=== PATIENT | male | born 1950 | race American Indian/Alaskan Native ===

== ENCOUNTER 2022-04-22 21:47 | Emergency (ER) | payer MEDICARE, OTHER ==
[2022-04-22] MEDS ORDERED: MIDAZOLAM 2 MG/2 ML INJ IV ONE (21:53)
--- NOTE | 2022-04-22 21:54 | Emergency Department Report ---
ED General Adult HPI - General Chief complaint: Neuro Symptoms/Deficit Stated complaint: CODE STROKE Time Seen by Provider: 04/22/22 21:51 Source: patient, EMS (Verbal report received from emergency medical services. EMS documentation not available at time of chart dictation ), RN notes reviewed Mode of arrival: Stretcher Limitations: Physical Limitation - History of Present Illness Initial comments: The patient was evaluated in the emergency department for symptoms described in the history of present illness. He/she was evaluated in the context of the global COVID-19 pandemic, which necessitated consideration that the patient might be at risk for infection with the virus that causes COVID-19. Institutional protocols and algorithms that pertain to the evaluation of patients at risk for COVID-19 are in a state of rapid change based on inform ation released by regulatory bodies including the CDC and federal and state organizations. These policies and algorithms were followed during the patient's care in the emergency department. Please note that these policies, procedures and recommendations changed on a rapid basis. The patient is a 71-year-old gentleman who is COVID-19 vaccinated, who presents to the department today with EMS with an EMS articulated complaint of possible code stroke. EMS reports last known well time is 12:00 PM this afternoon. As per EMS, stroke symptoms include difficulty speaking, and right-sided weakness and numbness. EMS also reports the patient has been stumbling and walking unsteadily today. There is no trauma. The patient denies physical pain. The patient states he does not take blood thinning medications. Symptoms are constant, painless, do not radiate anywhere, do not have exacerbating or relieving factors -: hour(s) Location: right, upper extremity, lower extremity Consistency: constant Improves with: none Worsens with: none - Related Data Previous Rx's Medication Instructions Recorded Last Taken Type Ibuprofen [Motrin] 600 mg PO Q8H PRN #30 tablet 03/01/16 Unknown Rx Allergies Allergy/AdvReac Type Severity Reaction Status Date / Time No Known Allergies Allergy Verified 04/22/22 23:09 ED Review of Systems ROS: Stated complaint: CODE STROKE Other details as noted in HPI Constitutional: denies: fever Eyes: denies: eye discharge ENT: denies: epistaxis Respiratory: denies: cough Cardiovascular: denies: chest pain Gastrointestinal: denies: abdominal pain Neurological: weakness, numbness ED Past Medical Hx - Past Medical History Hx Heart Attack/AMI: Yes Hx Diabetes: Yes - Surgical History Additional Surgical History: hernia repair, achilles tendon repair - Social History Smoking Status: Current Every Day Smoker Substance Use Type: Alcohol - Medications Home Medications: Home Medications Medication Instructions Recorded Confirmed Last Taken Type Ibuprofen [Motrin] 600 mg PO Q8H PRN #30 tablet 03/01/16 Unknown Rx ED Physical Exam - General Limitations: Physical Limitation General appearance: alert, in no apparent distress, obese - Head Head exam: Present: atraumatic, normocephalic - Eye Eye exam: Present: normal appearance, EOMI. Absent: nystagmus - ENT ENT exam: Present: normal exam, normal orophraynx, mucous membranes moist, normal external ear exam - Neck Neck exam: Present: normal inspection, full ROM. Absent: tenderness, meningism us - Respiratory Respiratory exam: Present: normal lung sounds bilaterally. Absent: respiratory distress, wheezes, rales, rhonchi, stridor, decreased breath sounds - Cardiovascular Cardiovascular Exam: Present: regular rate, normal rhythm, normal heart sounds. Absent: bradycardia, tachycardia, irregular rhythm, systolic murmur, diastolic murmur, rubs, gallop - GI/Abdominal GI/Abdominal exam: Present: soft. Absent: distended, tenderness, guarding, rebound, rigid, pulsatile mass - Rectal Rectal exam: Present: deferred - Extremities Exam Extremities exam: Present: normal inspection, full ROM (Left arm, left leg), other (2+ pulses noted in the bilateral upper and lower extremities. There is no palpable cord. negative Homans sign. Muscular compartments are soft. The pelvis is stable.). Absent: calf tenderness - Back Exam Back exam: Present: normal inspection. Absent: tenderness, CVA tenderness (R), CVA tenderness (L), paraspinal tenderness, vertebral tenderness - Neurological Exam Neurological exam: Present: alert, motor sensory deficit (There is 4-5 strength right arm and right leg. The patient has clumsiness in his right arm and right leg.), other (There is no facial droop. The tongue is midline. EOMI. 5 out of 5 strength left arm and left leg) - Psychiatric Psychiatric exam: Present: flat affect - Skin Skin exam: Present: warm, dry, intact, normal color. Absent: rash ED Course Vital Signs 04/22/22 04/22/22 04/22/22 21:48 21:52 21:53 Temperature 98 F 97.3 F L Pulse Rate 91 H 93 H 88 Respiratory 18 18 18 Rate Blood Pressure 154/89 Blood Pressure 154/89 127/78 [Left] O2 Sat by Pulse 99 98 99 Oximetry 04/23/22 00:00 Temperature 98.1 F Pulse Rate 78 Respiratory 18 Rate Blood Pressure Blood Pressure 129/90 [Left] O2 Sat by Pulse Oximetry - Reevaluation(s) Reevaluation #1: 04/22/22 22:25 Differential diagnosis, include but not limited to: Ischemic stroke, hemorrhagic stroke Assessment and plan: 71-year-old gentleman presenting with strokelike symptoms, last known well time was 12:00 PM, found to have evidence of a hemorrhagic stroke, which shift, and hygromas. He is awake and alert and protecting his airway. Blood pressure currently 154 mmHg systolic. tPA is contraindicated given presence of obvious bleed. Do not require emergent CT angiogram to fu rther triage this patient. Patient requires transfer to a facility that can provide neurology critical care. Patient is awake and protecting his airway at this time. CT scan brain evaluated by our neurosurgeon Dr. Altman, who advises that this patient cannot be definitively managed at this hospital. This hospital does not have capability of EVD placement Reached out to [facility] transfer center. They have advised that since this patient is a [place] patient will need to go through the [facility] hub and transfer line. Have subsequently discussed with [facility] hospitalist physician, Dr. Cesar Palma. He advises that he will attempt to facilitate coordination of transfer, and that he will also contact the [facility] transfer center to facilitate expedited disposition. N.p.o. at this time. Loaded with 2 g of Keppra. Discussed osmotic therapy with receiving neurology critical care BEB[facility]. Low threshold to start Cardene or antihypertensive agents if necessary. 04/22/22 22:31 Have discussed with [facility] transfer center, have requested expedient callback from neurology critical care 04/22/22 22:46 Discussed the patient's history, physical, imaging studies and clinical impression with neurology critical care at [facility], Dr. Sudhir Fuentes He advises that [facility] does not have any available beds in the ICU. They cannot accept the transfer at this time. Advises that hypertonic syndesmotic therapy such as mannitol not indicated at this time. Have also updated [facility] hub. He suggest that we discussed with [facility]. We are now reaching out to [facility] 04/22/22 23:09 discussed the patient's history, physical, imaging studies and clinical impression with neurology critical care Dr Jay They accept the patient as a transfer. [facility] updated. Patient and family updated Reevaluation #2: 04/22/22 23:11 Patient in no acute distress. Blood pressure 127/60 mmHg systolic. Hold antihypertensives at this time 04/22/22 23:49 With patient's permission, son is updated. Laboratory studies essentially nonactionable. Appears quite comfortable. No acute distress. Awaiting transportation at this time. 04/23/22 00:43 Multiple phone calls were made to multiple ambulance agencies. None of the ambulance agencies are able to accommodate this patient with transportation. Patient has a time sensitive condition which requires emergent transfer from [facility]. He will be airlifted out secondary to lack of ambulance transportation. [place] to update [facility]. Patient remains quite comfortable at this time. He is not in any acute distress ED Medical Decision Making - Lab Data Result diagrams: 04/22/22 22:20 04/22/22 22:20 Lab Results 04/22/22 04/22/22 04/22/22 Range/Units 22:20 22:20 22:20 WBC 7.7 (4.5-11.0) K/mm3 RBC 4.32 (3.65-5.03) M/mm3 Hgb 13.4 (11.8-15.2) gm/dl Hct 39.1 (35.5-45.6) % MCV 91 (84-94) fl MCH 31 (28-32) pg MCHC 34 (32-34) % RDW 14.9 (13.2-15.2) % Plt Count 181 (140-440) K/mm3 Lymph % (Auto) 24.2 (13.4-35.0) % Allen % (Auto) 8.3 H (0.0-7.3) % Eos % (Auto) 2.8 (0.0-4.3) % Baso % (Auto) 0.3 (0.0-1.8) % Lymph # (Auto) 1.9 (1.2-5.4) K/mm3 Allen # (Auto) 0.6 (0.0-0.8) K/mm3 Eos # (Auto) 0.2 (0.0-0.4) K/mm3 Baso # (Auto) 0.0 (0.0-0.1) K/mm3 Seg Neutrophils % 64.4 (40.0-70.0) % Seg Neutrophils # 5.0 (1.8-7.7) K/mm3 PT 13.5 (12.2-14.9) Sec. INR 0.93 (0.87-1.13) APTT 33.4 (24.2-36.6) Sec. Thrombin Time 16.2 (15.1-19.6) Sec. Sodium 140 (137-145) mmol/L Potassium 3.7 (3.6-5.0) mmol/L Chloride 101.9 (98-107) mmol/L Carbon Dioxide 24 (22-30) mmol/L Anion Gap 18 mmol/L BUN 16 (9-20) mg/dL Creatinine 1.1 (0.8-1.3) mg/dL Estimated GFR > 60 ml/min BUN/Creatinine Ratio 15 % Glucose 209 H (75-100) mg/dL Calcium 9.8 (8.4-10.2) mg/dL Total Bilirubin 0.40 (0.1-1.2) mg/dL AST 16 (5-40) units/L ALT 18 (7-56) units/L Alkaline Phosphatase 78 (35-129) units/L Total Creatine Kinase 115 (55-170) units/L CK-MB (CK-2) 1.7 (0.0-4.0) ng/mL CK-MB (CK-2) Rel Index 1.4 (0-4) Troponin T < 0.010 (0.00-0.029) ng/mL Total Protein 7.7 (6.3-8.2) g/dL Albumin 3.9 (3.9-5) g/dL Albumin/Globulin Ratio 1.0 % TSH (0.270-4.200) mlU/mL Plasma/Serum Alcohol (0-0.07) % 04/22/22 04/22/22 04/22/22 Range/Units 22:20 22:20 22:20 WBC (4.5-11.0) K/mm3 RBC (3.65-5.03) M/mm3 Hgb (11.8-15.2) gm/dl Hct (35.5-45.6) % MCV (84-94) fl MCH (28-32) pg MCHC (32-34) % RDW (13.2-15.2) % Plt Count (140-440) K/mm3 Lymph % (Auto) (13.4-35.0) % Allen % (Auto) (0.0-7.3) % Eos % (Auto) (0.0-4.3) % Baso % (Auto) (0.0-1.8) % Lymph # (Auto) (1.2-5.4) K/mm3 Allen # (Auto) (0.0-0.8) K/mm3 Eos # (Auto) (0.0-0.4) K/mm3 Baso # (Auto) (0.0-0.1) K/mm3 Seg Neutrophils % (40.0-70.0) % Seg Neutrophils # (1.8-7.7) K/mm3 PT (12.2-14.9) Sec. INR (0.87-1.13) APTT (24.2-36.6) Sec. Thrombin Time (15.1-19.6) Sec. Sodium (137-145) mmol/L Potassium (3.6-5.0) mmol/L Chloride (98-107) mmol/L Carbon Dioxide (22-30) mmol/L Anion Gap mmol/L BUN (9-20) mg/dL Creatinine (0.8-1.3) mg/dL Estimated GFR ml/min BUN/Creatinine Ratio % Glucose (75-100) mg/dL Calcium (8.4-10.2) mg/dL Total Bilirubin (0.1-1.2) mg/dL AST (5-40) units/L ALT (7-56) units/L Alkaline Phosphatase (35-129) units/L Total Creatine Kinase 117 (55-170) units/L CK-MB (CK-2) (0.0-4.0) ng/mL CK-MB (CK-2) Rel Index (0-4) Troponin T (0.00-0.029) ng/mL Total Protein (6.3-8.2) g/dL Albumin (3.9-5) g/dL Albumin/Globulin Ratio % TSH 4.210 H (0.270-4.200) mlU/mL Plasma/Serum Alcohol < 0.01 (0-0.07) % Vital Signs 04/22/22 04/22/22 21:48 21:53 Temperature 98 F Pulse Rate 91 H 88 Respiratory 18 18 Rate Blood Pressure 154/89 Blood Pressure 127/78 [Left] O2 Sat by Pulse 99 99 Oximetry - EKG Data -: EKG Interpreted by [place] EKG shows normal: sinus rhythm Rate: normal - EKG Data 04/22/22 23:49 The EKG is interpreted at 23: 31 Sinus rhythm, 83 bpm. Normal axis, normal P wave axis, nonspecific T wave abnormalities. Q waves in inferior leads. Abnormal EKG. Not a STEMI. QTc 4 5 4 ms. Lateral STEMI. No prior for comparison - Radiology Data Radiology results: pending, report reviewed, image reviewed CT HEAD WITHOUT CONTRAST INDICATION: Stroke symptoms right-sided weakness last known we TECHNIQUE: All CT scans at this location are performed using CT dose reduction for ALARA by means of automated exposure control. COMPARISON: None available. FINDINGS: BRAIN: Bilateral subdural fluid collections are seen, left much larger than right. The left collection has a thickness of approximately 3.4 cm and the right collection has a thickness of approximately 9 mm. Though some of the fluid in these collections is of low density and the appearance probably is chronic, there is significant acute hemorrhage in both with high density blood seen bilaterally. There is prominent midline shift to the right of approximately 1 cm at the frontal horn level. Right lateral ventricle is significantly larger than the left with temporal horn enlarging. 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 Basilar cisterns appear to be showing mild impingement. No other areas of hemorrhage are seen within the ventricular system or parenchyma. No subarachnoid blood is obvious. White matter microvascular type changes are seen. No evidence of acute cortical infarction is noted. ORBITS: Normal as visualized. SOFT TISSUES OF HEAD: Normal. CALVARIUM: Normal. VISUALIZED PARANASAL SINUSES AND MASTOID AIR CELLS: Clear. ADDITIONAL FINDINGS: None. IMPRESSION: Bilateral subdural fluid collections as above which appear to be a combination of chronic and acute findings. The left is much larger than the right and there is prominent midline shift to the right and I am concerned about impending herniation and developing hydrocephalus CODE STROKE: Time of Communication (GLASS MECHANIC/CDT): 2109 CDT Licensed Practitioner Receiving Report: Dr. Juaquin Arnold Signer Name: Lev Jimenez MD Signed: 04/22/2022 9:16 PM Workstation Name: [id number] Critical Care Time: Yes Critical care time in (mins) excluding proc time.: 74 Critical care attestation.: If time is entered above; I have spent that time in minutes in the direct care of this critically ill patient, excluding procedure time. ED Disposition Clinical Impression: Hemorrhagic stroke Disposition: [facility] Is pt being admited?: No Does the pt Need Aspirin: No Condition: Critical Referrals: PRIMARY CARE, [Primary Care Provider] - 3-5 Days
--- NOTE | 2022-04-22 21:56 | Consultation ---
History of Present Illness Consult date: 04/22/22 History of present illness: [facility] Consult Note # Demographics Consult Type: Acute Stroke Level 2 (4.5-24 hrs) Patient Location: Emergency Room First Name: Karsten Last Name: Reyes Date of : 1950 Age: 71 Facility: [facility] Time of Initial Page (Eastern Time): 04/22/2022, 21:23 Time of Return Call (Eastern Time): 04/22/2022, 21:24 # HPI Chief Complaint: altered mental state confusion History: Per ER staff from EMS, patient with altered mental status, last known well around noon. There was no reported history of seizure disorder, loss of consciousness, unilateral convulsions, mouth trauma or sphincter incontinence. Last Known Normal: I have collected independent history specific to time last normal or last known well. We have collaborated with the provider and at this time, we have the most current timeline with the information that is available. Noon Duration: constant hours Associated Symptoms: confusion # Scores Time of exam and NIHSS ( Time): 04/22/2022, 21:46 Level of Consciousness 1a: [0] = Alert; keenly responsive LOC Questions 1b: [2] = Answers neither correctly LOC Commands 1c: [0] = Performs both tasks correctly Best Gaze 2: [0] = Normal Visual 3: [0] = No visual loss Facial Palsy 4: [0] = Normal symmetrical movements Motor Arm Left 5a: [0] = No drift Motor Arm Right 5b: [0] = No drift Motor Leg Left 6a: [0] = No drift Motor Leg Right 6b: [2] = Some effort against gravity Limb Ataxia 7: [0] = Absent Sensory 8: [0] = Normal Best Language 9: [1] = [id number]-[id number] aphasia Dysarthria 10: [0] = Normal Extinction and Inattention 11: [0] = No abnormality NIHSS Total: 5 Modified [place] Scale (mRS) pre-stroke: [0] = No Symptoms Modified [place] Scale total: 0 VAN Screening: Negative # Exam SBP: 160 DBP: 110 Mental Status: awake alert and oriented x 3 follows commands Said age was 61, perseverated on age Language: normal speech Cranial Nerves: No observed facial myoclonus or unilateral convulsions noted. # ROS Unable to obtain ROS: altered mentation # PMH--SH Past Medical History: Diabetes hypertension Medications: antihypertensive aspirin diabetic medication Allergies: NKDA # Data Glucose: 225 per EMS # Assessment Impression: Altered Mental Status Ischemic Stroke (Acute) Seizure # Plan Thrombolytic/Intervention: Possible IA candidate Thrombolytic Exclusion: > 4.5 hours Possible IA Candidate: CTA pending Target Blood Pressure: SBP < [address] Labs: Ammonia B12 CBC comprehensive metabolic panel ESR hemoglobin A1c lipid panel thiamine troponin TSH urine drug screen ua Infectious work-up Imaging: (urgency: STAT): CT Head without contrast CT Angiogram Head and CT Angiogram Neck AND call back with results if abnormal Imaging: (urgency: routine): MRI Brain without contrast Diagnostic Test: echo without bubble study EEG Can try lorazepam 1-2mg IV 1-2 doses to see if improves confusion, which would suggest subclinical seizure episode. Therapy/Evaluation: NPO until swallow evaluation PT/OT evaluation speech/swallow consultation Medication: aspirin 81 mg PLUS clopidogrel (Plavix) 75 mg for 21 days, then monotherapy therafter start statin with goal of LDL < [address] DVT Prophylaxis: SCD chemical DVT prophylaxis Other: permissive hypertension telemetry monitoring seizure precautions I have discussed my recommendations with the referring provider Disposition: admit Medications and Allergies Home Medications Medication Instructions Recorded Confirmed Last Taken Type Ibuprofen [Motrin] 600 mg PO Q8H PRN #30 tablet 03/01/16 Unknown Rx Active Meds: Active Medications Midazolam HCl (Midazolam 2 Mg/2 Ml Inj) 1 mg IV ONCE ONE Stop: 04/22/22 21:54
[2022-04-22] MEDS ORDERED: levETIRAcetam 1000 MG/NS 0.75% 1,000 MG/100 ML BAG IV ONE ×2 (22:10)
--- NOTE | 2022-04-22 22:20 | Cat Scan Report ---
CT HEAD WITHOUT CONTRAST INDICATION: Stroke symptoms right-sided weakness last known we TECHNIQUE: All CT scans at this location are performed using CT dose reduction for ALARA by means of automated exposure control. COMPARISON: None available. FINDINGS: BRAIN: Bilateral subdural fluid collections are seen, left much larger than right. The left collectio n has a thickness of approximately 3.4 cm and the right collection has a thickness of approximately 9 mm. Though some of the fluid in these collections is of low density and the appearance probably is c hronic, there is significant acute hemorrhage in both with high density blood seen bilaterally. There is prominent midline shift to the right of approximately 1 cm at the frontal horn level. Right later al ventricle is significantly larger than the left with temporal horn enlarging. I do not know the ba seline size of the right ventricle but probably this is developing hydrocephalus. Basilar cisterns ap pear to be showing mild impingement. No other areas of hemorrhage are seen within the ventricular sys tem or parenchyma. No subarachnoid blood is obvious. White matter microvascular type changes are seen . No evidence of acute cortical infarction is noted. ORBITS: Normal as visualized. SOFT TISSUES OF HEAD: Normal. CALVARIUM: Normal. VISUALIZED PARANASAL SINUSES AND MASTOID AIR CELLS: Clear. ADDITIONAL FINDINGS: None. IMPRESSION: Bilateral subdural fluid collections as above which appear to be a combination of chronic and acute findings. The left is much larger than the right and there is prominent midline shift to t he right and I am concerned about impending herniation and developing hydrocephalus CODE STROKE: Time of Communication (CLEAN OUT DRILLER/CDT): 2109 CDT Licensed Practitioner Receiving Report: Dr. Juaquin Arnold Signer Name: Lev Jimenez MD Signed: 04/22/2022 10:16 PM Workstation Name: [id number]
[2022-04-22 23:08] LABS: Basophils % (Auto) 0.3 % (0.0-1.8); Eosinophils # (Auto) 0.2 K/mm3 (0.0-0.4); Eosinophils % (Auto) 2.8 % (0.0-4.3); Hematocrit 39.1 % (35.5-45.6); Hemoglobin 13.4 gm/dl (11.8-15.2); Lymphocytes # (Auto) 1.9 K/mm3 (1.2-5.4); Lymphocytes % (Auto) 24.2 % (13.4-35.0); Mean Corpuscular HGB Conc 34 % (32-34); Mean Corpuscular Volume 91 fl (84-94); Monocytes # (Auto) 0.6 K/mm3 (0.0-0.8); Monocytes % (Auto) 8.3 % (0.0-7.3); Platelet Count 181 K/mm3 (140-440); Red Blood Count 4.32 M/mm3 (3.65-5.03); Red Cell Distribution Width 14.9 % (13.2-15.2)
[2022-04-22 23:23] LABS: INR 0.93 (0.87-1.13)
[2022-04-22 23:24] LABS: Partial Thromboplastin Time 33.4 Sec. (24.2-36.6); Thrombin Time 16.2 Sec. (15.1-19.6)
[2022-04-22 23:25] LABS: Creatine Kinase MB 1.7 ng/mL (0.0-4.0)
[2022-04-22 23:26] LABS: Alanine Aminotransferase 18 units/L (7-56); Albumin 3.9 g/dL (3.9-5); BUN/Creatinine Ratio 15; Blood Urea Nitrogen 16 mg/dL (9-20); Calcium 9.8 mg/dL (8.4-10.2); Hemolysis Index 11
--- NOTE | 2022-04-22 23:43 | XRay Report ---
CHEST 1 VIEW INDICATION / CLINICAL INFORMATION: cva weakness STUDY TIME: 1016 COMPARISON: None available. FINDINGS: SUPPORT DEVICES: None HEART / MEDIASTINUM: No significant abnormality. LUNGS / PLEURA: No significant acute pulmonary or pleural abnormality. No pneumothorax. ADDITIONAL FINDINGS: No significant additional findings. Signer Name: Lev Jimenez MD Signed: 04/22/2022 11:39 PM Workstation Name: [id number]
[2022-04-23 02:08] VITALS: BP 153/88
--- NOTE | 2022-04-23 15:19 | Electrocardiograph Report ---
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
== END 2022-04-23 01:21 | disposition short-term general hospital (02) ==
LOC: ED 21:47
DX: I61.9 Nontraumatic intracerebral hemorrhage, unspecified (principal); F17.200 Nicotine dependence, unspecified, uncomplicated; F10.20 Alcohol dependence, uncomplicated; E11.9 Type 2 diabetes mellitus without complications
CPT/HCPCS: 36415; 70450; 71045; 80053; 82550; 82553; 84443; 84484; 85025; 85610; 85670; 85730; 93005; 96374; 96376; 99291; J1953; 80320; 99285; G0480